=== PATIENT | female | born 1965 | race Caucasian/White ===

== ENCOUNTER 2022-10-01 01:05 | Emergency (ER) | payer MEDICAID, OTHER ==
[~2022-10-01] VITALS: Ht 160 cm; Wt 79.5 kg
[~2022-10-01 01:05] MED LIST: antibiotic PO
[2022-10-01 01:24] LABS: COVID AG,FIA SOURCE NASAL SWAB
[2022-10-01 01:40] LABS: RAPID GROUP A STREP NEGATIVE (NEGATIVE)
[2022-10-01 01:47] LABS: INFLUENZA TYPE A NEGATIVE FOR TYPE A (NEGATIVE); INFLUENZA TYPE B NEGATIVE FOR TYPE B (NEGATIVE)
[2022-10-01 03:45] VITALS: BP 119/90
[2022-10-01] MEDS: DOXYCYCLINE HYCLATE 100 MG TABLET PO ONE (04:32)
[2022-10-01] MEDS: ACETAMINOPHEN 500 MG TABLET PO ONE (04:32)
[2022-10-01] MEDS: POLYMYXIN B/TRIMETHOPRIM 10 ML OPHTHALMIC SOLUTION OU ONE (04:32)
[2022-10-01] MEDS ORDERED: POLYOS OU (05:16)
[2022-10-01] MEDS ORDERED: DOXY-354 PO (05:16)
== END 2022-10-01 05:39 | disposition home or self-care (01) ==
LOC: EMS 01:05
DX: H10.33 Unspecified acute conjunctivitis, bilateral (principal); F17.210 Nicotine dependence, cigarettes, uncomplicated; L01.00 Impetigo, unspecified; Z20.822 Contact with and (suspected) exposure to COVID-19
CPT/HCPCS: 71045; 87430; 87804; 99284